=== PATIENT | male | born 1980 | race Two or more races ===

== ENCOUNTER → 2017-01-04 | Outpatient (CLI) | payer OTHER ==
[2017-01-04 13:43] LABS: BASO % 0 % (0-3); EOS # 0.1 x10^3/uL (0.0-0.7); EOS % 0 % (0-3); HEMATOCRIT 41.6 % (39.0-53.0); HEMOGLOBIN 14.4 g/dL (13.0-17.5); LYMPH # 1.9 x10^3/uL (1.0-4.8); LYMPH % 15 % (24-48); MEAN CORPUSCULAR HEMOGLOBIN 31 pg (25-35); MEAN CORPUSCULAR HGB CONC 35 g/dL (31-37); MEAN CORPUSCULAR VOLUME 89 fL (79-100); MONO # 0.7 x10^3/uL (0.0-1.1); MONO % 6 % (0-9); NEUT # 9.5 x10^3uL (1.8-7.7); NEUT % 78 % (31-73); PLATELET COUNT 285 x10^3/uL (140-400); RED BLOOD COUNT 4.69 x10^6/uL (4.30-5.70); RED CELL DISTRIBUTION WIDTH 12.7 % (11.5-14.5); WHITE BLOOD COUNT 12.2 x10^3/uL (4.0-11.0)
[2017-01-04 13:54] LABS: CREATININE 0.9 mg/dL (0.7-1.3); GFR 95.5; POTASSIUM 4.9 mmol/L (3.5-5.1); TOTAL BILIRUBIN 0.4 mg/dL (0.2-1.0); TOTAL PROTEIN 7.9 g/dL (6.4-8.2)
== END | disposition home or self-care (01) ==
LOC: SPEC 13:13
PROVIDERS: ATTEND Family Medicine Adult Medicine
DX: R41.82 Altered mental status, unspecified (principal)
CPT/HCPCS: 36415; 80053; 85025

== ENCOUNTER 2017-10-17 21:46 | Inpatient (IN) | payer OTHER ==
[~2017-10-17] VITALS: Ht 172.7 cm; Wt 85.3 kg
--- NOTE | 2017-10-17 22:13 | ED.ADGEN ---
Past History Past Medical History: Depression, Diabetes, Other Adult General Chief Complaint Chief Complaint ".. I took all my Metformin--30,000mg.. I was trying to kill myself... " HPI HPI Patient is a 37 year old male [facility] who presents with above hx. of overdosage of Metformin. Pt. Glucose was 400 + per paramedics . ( See hand written report- computer down) Tthe patient reports past history of depression. Review of Systems Review of Systems Pt. poor historian Constitutional: Denies fever or chills [] Eyes: Denies change in visual acuity, redness, or eye pain [] HENT: Denies nasal congestion or sore throat [] Respiratory: Denies cough or shortness of breath [] Cardiovascular: No additional information not addressed in HPI [] GI: Denies abdominal pain, nausea, vomiting, bloody stools or diarrhea [] : Denies dysuria or hematuria [] Musculoskeletal: Denies back pain or joint pain [] Integument: Denies rash or skin lesions [] Neurologic: Denies headache, focal weakness or sensory changes [] Endocrine: Denies polyuria or polydipsia [] All other systems were reviewed and found to be within normal limits, except as documented in this note. Family History Family History Patient declined family history Current Medications Current Medications See nursing for residential medications Allergies Allergies Allergies Coded Allergies Type Severity Reaction Last Updated Verified ibuprofen Allergy Unknown 10/17/17 Yes Physical Exam Physical Exam Constitutional: Well developed, well nourished, no acute distress, non-toxic appearance. [] HENT: Normocephalic, atraumatic, bilateral external ears normal, oropharynx moist, no oral exudates, nose normal. [] Eyes: PERRLA, EOMI, conjunctiva normal, no discharge. [] Neck: Normal range of motion, no tenderness, supple, no stridor. [] Cardiovascular:Heart rate regular rhythm, no murmur [] Lungs & Thorax: Bilateral breath sounds clear to auscultation [] Abdomen: Bowel sounds normal, soft, no tenderness, no masses, no pulsatile masses. [] Skin: Warm, dry, no erythema, no rash. [] Back: No tenderness, no CVA tenderness. [] Extremities: No tenderness, no cyanosis, no clubbing, ROM intact, no edema. [] Neurologic: Alert and oriented X 3, normal motor function, normal sensory function, no focal deficits noted. [] Psychologic: Affect anxious, judgement normal, mood depressed Current Patient Data Lab Results Laboratory Tests Test 10/17/17 21:56 10/17/17 22:35 White Blood Count 10.1 x10^3/uL (4.0-11.0) Red Blood Count 4.86 x10^6/uL (4.30-5.70) Hemoglobin 15.2 g/dL (13.0-17.5) Hematocrit 44.4 % (39.0-53.0) Mean Corpuscular Volume 91 fL (79-100) Mean Corpuscular Hemoglobin 31 pg (25-35) Mean Corpuscular Hemoglobin Concent 34 g/dL (31-37) Red Cell Distribution Width 12.2 % (11.5-14.5) Platelet Count 300 x10^3/uL (140-400) Neutrophils (%) (Auto) 56 % (31-73) Lymphocytes (%) (Auto) 34 % (24-48) Monocytes (%) (Auto) 7 % (0-9) Eosinophils (%) (Auto) 2 % (0-3) Basophils (%) (Auto) 1 % (0-3) Neutrophils # (Auto) 5.7 x10^3uL (1.8-7.7) Lymphocytes # (Auto) 3.4 x10^3/uL (1.0-4.8) Monocytes # (Auto) 0.7 x10^3/uL (0.0-1.1) Eosinophils # (Auto) 0.2 x10^3/uL (0.0-0.7) Basophils # (Auto) 0.1 x10^3/uL (0.0-0.2) Sodium Level 133 mmol/L (136-145) L Potassium Level 4.2 mmol/L (3.5-5.1) Chloride Level 96 mmol/L (98-107) L Carbon Dioxide Level 26 mmol/L (21-32) Anion Gap 11 (6-14) Blood Urea Nitrogen 11 mg/dL (8-26) Creatinine 1.1 mg/dL (0.7-1.3) Estimated GFR (Cockcroft-Gault) 75.3 Glucose Level 492 mg/dL (70-99) H Calcium Level 10.2 mg/dL (8.5-10.1) H Blood pH 7.38 (7.35-7.46) Blood Gas PCO2 45 mmHg (35-46) Blood Gas PO2 79 mmHg (80-100) L Blood Gas HCO3 27 mmol/L (21-28) Arterial Bld O2 Saturation (Calc) 95 % (92-99) FiO2 21 % EKG EKG My interpretation EKG shows a sinus rhythm at 78 bpm. No acute morphology appreciated. Does have some J-point elevation in leads 2 and 3.[] Radiology/Procedures Radiology/Procedures My interpretation of chest x-ray shows no acute cardiopulmonary findings.[] Course & Med Decision Making Course & Med Decision Making Pertinent Labs and Imaging studies reviewed. (See chart for details) Discussed presentation, testing and tx plan with Dr. Rodriguez. Admit - with serial glucose and lactic acid checks. [] Final Impression Final Impression 1. Hx. of Overdosage of Metformin- (30,000 mg) 2. DM - initial glucose 3. Depression 4. Suicidal Ideation[] Dragon Disclaimer Dragon Disclaimer This electronic medical record was generated, in whole or in part, using a voice recognition dictation system. AGUSTIN CHI MD Oct 17, 2017 22:13
[2017-10-17 22:51] LABS: BGAS PH 7.38 (7.35-7.46)
[2017-10-17 22:53] LABS: BASO # 0.1 x10^3/uL (0.0-0.2); BASO % 1 % (0-3); EOS # 0.2 x10^3/uL (0.0-0.7); EOS % 2 % (0-3); HEMATOCRIT 44.4 % (39.0-53.0); HEMOGLOBIN 15.2 g/dL (13.0-17.5); LYMPH # 3.4 x10^3/uL (1.0-4.8); LYMPH % 34 % (24-48); MEAN CORPUSCULAR HEMOGLOBIN 31 pg (25-35); MEAN CORPUSCULAR HGB CONC 34 g/dL (31-37); MEAN CORPUSCULAR VOLUME 91 fL (79-100); MONO # 0.7 x10^3/uL (0.0-1.1); MONO % 7 % (0-9); NEUT # 5.7 x10^3uL (1.8-7.7); NEUT % 56 % (31-73); PLATELET COUNT 300 x10^3/uL (140-400); RED BLOOD COUNT 4.86 x10^6/uL (4.30-5.70); RED CELL DISTRIBUTION WIDTH 12.2 % (11.5-14.5); WHITE BLOOD COUNT 10.1 x10^3/uL (4.0-11.0)
[2017-10-17 23:00] LABS: CALCIUM 10.2 mg/dL (8.5-10.1); CREATININE 1.1 mg/dL (0.7-1.3); GFR 75.3; POTASSIUM 4.2 mmol/L (3.5-5.1)
[2017-10-17] MEDS ORDERED: MAGNESIUM HYDROXIDE 2,400 MG/30 ML ORAL.SUSP. PO ONE (23:00)
[2017-10-17] MEDS ORDERED: IV NORMAL SALINE 1,000ML 1,000 ML IV ONE (23:00)
[2017-10-17] MEDS: IV RINGERS SOLUTION,LACTATED 1,000 ML IV SCH (23:46)
[2017-10-18] VITALS (18 sets, daily range): BP systolic 109–180; BP diastolic 73–103
[2017-10-18] MEDS ORDERED: NORMAL SALINE IV SCH (00:45)
[2017-10-18] MEDS ORDERED: IV NORMAL SALINE 1,000ML 1,000 ML IV ONE (01:15)
--- NOTE | 2017-10-18 02:07 | RAD ---
AP chest x-ray HISTORY: Drug overdose. FINDINGS: Heart size normal. Mediastinal silhouette is normal. No pneumothorax, pulmonary opacities or pleural effusions. Bones are unremarkable. IMPRESSION: No acute process. Electronically signed by: Evaristo Patel MD (10/18/2017 2:04 AM) [id number]
[2017-10-18] MEDS: IV RINGERS SOLUTION,LACTATED 1,000 ML IV SCH ×4 (02:25→19:30)
[2017-10-18 03:44] LABS: CALCIUM 8.8 mg/dL (8.5-10.1); CREATININE 1.2 mg/dL (0.7-1.3); GFR 68.1; POTASSIUM 4.4 mmol/L (3.5-5.1)
--- NOTE | 2017-10-18 03:57 | EKG ---
[address] [address] Test Date: 2017-10-17 Test Time: 22:31:15 Pat Name: ANA M TRISTAN Department: Room: ICU01 1 Gender: M [employer] Faculty Liaison: JANAE : 1980 Requested By: AGUSTIN CHI Order Number: [id number] Reading MD: Rishi Richards MD Measurements Intervals Ada Rate: 78 P: 43 MS: 184 QRS: 65 QRSD: 80 T: 34 QT: 344 QTc: 395 Interpretive Statements SINUS RHYTHM Electronically Signed On 10-22-2017 11:10:20 CDT by Rishi Richards MD
[2017-10-18 06:51] LABS: BASO # 0.1 x10^3/uL (0.0-0.2); BASO % 1 % (0-3); EOS # 0.2 x10^3/uL (0.0-0.7); EOS % 2 % (0-3); HEMATOCRIT 39.9 % (39.0-53.0); HEMOGLOBIN 13.8 g/dL (13.0-17.5); LYMPH # 3.3 x10^3/uL (1.0-4.8); LYMPH % 29 % (24-48); MEAN CORPUSCULAR HEMOGLOBIN 32 pg (25-35); MEAN CORPUSCULAR HGB CONC 35 g/dL (31-37); MEAN CORPUSCULAR VOLUME 92 fL (79-100); MONO # 0.9 x10^3/uL (0.0-1.1); MONO % 8 % (0-9); NEUT # 6.9 x10^3uL (1.8-7.7); NEUT % 61 % (31-73); PLATELET COUNT 250 x10^3/uL (140-400); RED BLOOD COUNT 4.33 x10^6/uL (4.30-5.70); RED CELL DISTRIBUTION WIDTH 12.6 % (11.5-14.5); WHITE BLOOD COUNT 11.3 x10^3/uL (4.0-11.0)
[2017-10-18 07:04] LABS: CALCIUM 8.7 mg/dL (8.5-10.1); CREATININE 1.1 mg/dL (0.7-1.3); GFR 75.3; POTASSIUM 3.9 mmol/L (3.5-5.1)
[2017-10-18] MEDS ORDERED: DEXTROSE 50% 25 GM / 50ML DISP.SYRIN. IV PRN (11:15)
--- NOTE | 2017-10-18 12:01 | HP ---
ADMIT DATE: 10/18/2017 HISTORY OF PRESENT ILLNESS: The patient is a 37-year-old -Turkish male patient, an inmate at [facility], who came to the Emergency Room stating that he took all his metformin 30,000 mg and was trying to kill himself. His blood sugar there was about . He apparently has past medical history of depression, although when I asked him myself, he denied any intent to kill himself. Denied any nausea, vomiting, abdominal pain with diarrhea. He was extensively investigated in the Emergency Room. His lab work showed that he has lactic acidosis with lactic acid of 4.1, came down to 3.4. His blood gases were normal as well as his blood count. He was admitted for further evaluation and treatment with suicidal ideation, drug overdose taking 30,000 mg metformin. Apparently, he is known to have type 2 diabetes and he used to be on insulin for that and has a history of depression. PAST MEDICAL HISTORY: Significant for type 2 diabetes diagnosed in 2004. He had also known to have hyperlipidemia. PAST SURGICAL HISTORY: Unremarkable. ALLERGIES: He is allergic to MOTRIN. MEDICATIONS: He is currently on metformin 500 mg twice a day. FAMILY HISTORY: He has 3 brothers and 1 sister. One of his brother is older. The rest are younger and all healthy. His father at age 76. Mother at the age of 56; however, he does not know their cause of or any medical problems. SOCIAL HISTORY: He is single, not , does not smoke, drink alcohol or use any recreational drugs. REVIEW OF SYSTEMS: As per history of present illness. PHYSICAL EXAMINATION: GENERAL: On examining him; he looked well and was clearly in no apparent respiratory distress, slightly pale, but no jaundice, cyanosis, or thyromegaly. No jugular venous distension. No lower limb edema. VITAL SIGNS: His heart rate was 88, blood pressure 144/87, temperature was 97.8, respiratory rate 26, and oxygen saturation was 100% on room air. HEAD, EYES, EARS, NOSE AND THROAT: Showed normocephalic, atraumatic. NECK: Supple. HEART: Showed normal first and second sounds. No gallop, rub or murmur. CHEST: Clear to auscultation. No crepitation or rhonchi. ABDOMEN: Distended, soft, nontender. NEUROLOGIC: He was awake, alert, responding appropriately. All cranial nerves intact. EXTREMITIES: He moves extremities without difficulty. He ambulates without assistance or assistive devices. LABORATORY DATA: On admission showed a white cell count of 10,000, hemoglobin 15, hematocrit 44, MCV 91, and platelet count 300,000. His arterial blood gases showed a pH of 7.38, pCO2 of 45, pO2 of 79, bicarbonate 27, oxygen saturation was 95% on room air. His chemistry showed serum sodium of 133, potassium 4.2, chloride 96, bicarbonate 26, anion gap of 11, BUN 11, creatinine 1.1, estimated GFR was 75 mL per minute. His glucose was 492, lactic acid was 4.1 and calcium was 10.2. ASSESSMENT AND PLAN: In summary, this is a 37-year-old -Turkish male patient, a [facility] inmate, who was admitted with an overdose of metformin. He took 30,000 mg of metformin with the intent to harm himself. He is known to have type 2 diabetes since 2004 and he is known to have depression. The patient so far seems to be doing well. We will monitor his lab work, continued IV fluid. We will continue a low dose sliding scale to control his blood sugar and we will consult Dr. Elmore to evaluate him and he felt that safe for him to go back, we can discharge him. TOMASZ SAMANO MD DR: LADI/griffin JOB#: [id number] / [id number]
[2017-10-18] MEDS: INSULIN LISPRO 300 UNITS/3 ML INSULN.PEN. SQ SCH ×3 (12:06→22:02)
[2017-10-18 12:30] LABS: ALBUMIN 3.1 g/dL (3.4-5.0); MAGNESIUM 1.9 mg/dL (1.8-2.4); TOTAL BILIRUBIN 0.6 mg/dL (0.2-1.0); TOTAL PROTEIN 6.7 g/dL (6.4-8.2)
[2017-10-18 12:57] LABS: DIRECT BILIRUBIN 0.1 mg/dL (0.0-0.2)
[2017-10-18] MEDS: LOSARTAN 25 MG TABLET. PO SCH (17:50)
[2017-10-18] MEDS: LISINOPRIL 5 MG TABLET. PO SCH (17:50)
[2017-10-18] MEDS ORDERED: ATORVASTATIN CALCIUM 10 MG TABLET. PO SCH (21:00)
--- NOTE | 2017-10-18 22:52 | PDOC ---
Exam Note: Brock Note: Please also refer to the separate dictated note~for this date of service dictated separately.~Patient seen individually. Discussed the patient with Nursing staff reviewed the chart.~Reviewed interim history and current functioning. Reviewed vital signs,~Labs/ Radiology~and current medications noted below. Continue current treatment with the changes noted in the dictated addendum note Assessment: Vital Signs: Vital Signs Date Time Temp Pulse Resp B/P (MAP) Pulse Ox O2 Delivery O2 Flow Rate FiO2 10/18/17 18:00 98.6 69 20 148/87 (107) 97 Room Air I&O Intake and Output 10/18/17 07:00 Intake Total 2570 ml Balance 2570 ml Intake Oral 0 ml IV Total 2570 ml Labs: Laboratory Tests Test 10/17/17 22:55 10/18/17 00:20 10/18/17 01:25 10/18/17 02:49 Lactic Acid Level 4.1 mmol/L (0.4-2.0) *H Glucose (Fingerstick) 318 mg/dL (70-99) H 238 mg/dL (70-99) H 210 mg/dL (70-99) H Test 10/18/17 03:05 10/18/17 05:03 10/18/17 05:44 10/18/17 08:13 Sodium Level 142 mmol/L (136-145) # 141 mmol/L (136-145) Potassium Level 4.4 mmol/L (3.5-5.1) 3.9 mmol/L (3.5-5.1) Chloride Level 107 mmol/L (98-107) 106 mmol/L (98-107) Carbon Dioxide Level 29 mmol/L (21-32) 25 mmol/L (21-32) Anion Gap 6 (6-14) 10 (6-14) Blood Urea Nitrogen 11 mg/dL (8-26) 11 mg/dL (8-26) Creatinine 1.2 mg/dL (0.7-1.3) 1.1 mg/dL (0.7-1.3) Estimated GFR (Cockcroft-Gault) 68.1 75.3 Glucose Level 219 mg/dL (70-99) H 223 mg/dL (70-99) H Lactic Acid Level 3.4 mmol/L (0.4-2.0) H Calcium Level 8.8 mg/dL (8.5-10.1) # 8.7 mg/dL (8.5-10.1) Glucose (Fingerstick) 211 mg/dL (70-99) H 207 mg/dL (70-99) H White Blood Count 11.3 x10^3/uL (4.0-11.0) H Red Blood Count 4.33 x10^6/uL (4.30-5.70) Hemoglobin 13.8 g/dL (13.0-17.5) Hematocrit 39.9 % (39.0-53.0) Mean Corpuscular Volume 92 fL (79-100) Mean Corpuscular Hemoglobin 32 pg (25-35) Mean Corpuscular Hemoglobin Concent 35 g/dL (31-37) Red Cell Distribution Width 12.6 % (11.5-14.5) Platelet Count 250 x10^3/uL (140-400) Neutrophils (%) (Auto) 61 % (31-73) Lymphocytes (%) (Auto) 29 % (24-48) Monocytes (%) (Auto) 8 % (0-9) Eosinophils (%) (Auto) 2 % (0-3) Basophils (%) (Auto) 1 % (0-3) Neutrophils # (Auto) 6.9 x10^3uL (1.8-7.7) Lymphocytes # (Auto) 3.3 x10^3/uL (1.0-4.8) Monocytes # (Auto) 0.9 x10^3/uL (0.0-1.1) Eosinophils # (Auto) 0.2 x10^3/uL (0.0-0.7) Basophils # (Auto) 0.1 x10^3/uL (0.0-0.2) Magnesium Level 1.9 mg/dL (1.8-2.4) Total Bilirubin 0.6 mg/dL (0.2-1.0) Direct Bilirubin 0.1 mg/dL (0.0-0.2) Aspartate Amino Transferase (AST) 12 U/L (15-37) L Alanine Aminotransferase (ALT) 14 U/L (16-63) L Alkaline Phosphatase 69 U/L (46-116) Total Protein 6.7 g/dL (6.4-8.2) Albumin 3.1 g/dL (3.4-5.0) L Test 10/18/17 11:52 10/18/17 17:01 10/18/17 20:18 Glucose (Fingerstick) 222 mg/dL (70-99) H 218 mg/dL (70-99) H 278 mg/dL (70-99) H Current Medications: Meds: Current Medications Magnesium Hydroxide (Milk Of Magnesia) 2,400 mg 1X ONCE PO Last administered on 10/17/17at 23:45; Start 10/17/17 at 23:00; Stop 10/17/17 at 23:01; Status DC Sodium Chloride 1,000 ml @ 1,000 mls/hr 1X ONCE IV Last administered on at 23:45; Start 10/17/17 at 23:00; Stop 10/17/17 at 23:59; Status DC Lactated Ringer's 1,000 ml @ 200 mls/hr Q5H IV Last administered on 10/18/17at 07:59; Start 10/17/17 at 23:30 Sodium Chloride 2,550 ml @ 2,550 mls/hr Q1H IV ; Start 10/18/17 at 00:45; Stop 10/18/17 at 01:00; Status DC Sodium Chloride 1,000 ml @ 2,550 mls/hr 1X ONCE IV Last administered on at 00:55; Start 10/18/17 at 01:15; Stop 10/18/17 at 01:38; Status DC Insulin Human Lispro (HumaLOG) 0-5 UNITS TIDWMEALS SQ Last administered on 10/18at 22:02; Start 10/18/17 at 12:00 Dextrose 12.5 gm PRN Q15MIN PRN IV SEE COMMENTS; Start 10/18/17 at 11:15 Lisinopril (Prinivil) 5 mg DAILY PO Last administered on 10/18/17at 17:50; Start 10/18/17 at 17:45 Atorvastatin Calcium (Lipitor) 10 mg QHS PO ; Start 10/18/17 at 21:00 Losartan Potassium (Cozaar) 25 mg DAILY PO Last administered on 10/18/17at 17:50 ; Start 10/18/17 at 17:45 I have reviewed the current psychotropics carefully including drug interactions. Risk benefit ratio favors no change other than as noted in my dictated progress note. Diagnosis: Problems: (1) Anxiety disorder (2) Bipolar affective disorder, mixed (3) Schizoaffective disorder, bipolar type (4) Schizophrenia, paranoid, chronic with acute exacerbation BERNADETTE HOOVER MD Oct 18, 2017 22:52
--- NOTE | 2017-10-18 23:01 | PDOC ---
Exam Note: Brock Note: Please also refer to the separate dictated note~for this date of service dictated separately.~Patient seen individually. Discussed the patient with Nursing staff reviewed the chart.~Reviewed interim history and current functioning. Reviewed vital signs,~Labs/ Radiology~and current medications noted below. Continue current treatment with the changes noted in the dictated addendum note Assessment: Vital Signs: Vital Signs Date Time Temp Pulse Resp B/P (MAP) Pulse Ox O2 Delivery O2 Flow Rate FiO2 10/18/17 18:00 98.6 69 20 148/87 (107) 97 Room Air I&O Intake and Output 10/18/17 07:00 Intake Total 2570 ml Balance 2570 ml Intake Oral 0 ml IV Total 2570 ml Labs: Laboratory Tests Test 10/18/17 00:20 10/18/17 01:25 10/18/17 02:49 10/18/17 03:05 Glucose (Fingerstick) 318 mg/dL (70-99) H 238 mg/dL (70-99) H 210 mg/dL (70-99) H Sodium Level 142 mmol/L (136-145) # Potassium Level 4.4 mmol/L (3.5-5.1) Chloride Level 107 mmol/L (98-107) Carbon Dioxide Level 29 mmol/L (21-32) Anion Gap 6 (6-14) Blood Urea Nitrogen 11 mg/dL (8-26) Creatinine 1.2 mg/dL (0.7-1.3) Estimated GFR (Cockcroft-Gault) 68.1 Glucose Level 219 mg/dL (70-99) H Lactic Acid Level 3.4 mmol/L (0.4-2.0) H Calcium Level 8.8 mg/dL (8.5-10.1) # Test 10/18/17 05:03 10/18/17 05:44 10/18/17 08:13 10/18/17 11:52 Glucose (Fingerstick) 211 mg/dL (70-99) H 207 mg/dL (70-99) H 222 mg/dL (70-99) H White Blood Count 11.3 x10^3/uL (4.0-11.0) H Red Blood Count 4.33 x10^6/uL (4.30-5.70) Hemoglobin 13.8 g/dL (13.0-17.5) Hematocrit 39.9 % (39.0-53.0) Mean Corpuscular Volume 92 fL (79-100) Mean Corpuscular Hemoglobin 32 pg (25-35) Mean Corpuscular Hemoglobin Concent 35 g/dL (31-37) Red Cell Distribution Width 12.6 % (11.5-14.5) Platelet Count 250 x10^3/uL (140-400) Neutrophils (%) (Auto) 61 % (31-73) Lymphocytes (%) (Auto) 29 % (24-48) Monocytes (%) (Auto) 8 % (0-9) Eosinophils (%) (Auto) 2 % (0-3) Basophils (%) (Auto) 1 % (0-3) Neutrophils # (Auto) 6.9 x10^3uL (1.8-7.7) Lymphocytes # (Auto) 3.3 x10^3/uL (1.0-4.8) Monocytes # (Auto) 0.9 x10^3/uL (0.0-1.1) Eosinophils # (Auto) 0.2 x10^3/uL (0.0-0.7) Basophils # (Auto) 0.1 x10^3/uL (0.0-0.2) Sodium Level 141 mmol/L (136-145) Potassium Level 3.9 mmol/L (3.5-5.1) Chloride Level 106 mmol/L (98-107) Carbon Dioxide Level 25 mmol/L (21-32) Anion Gap 10 (6-14) Blood Urea Nitrogen 11 mg/dL (8-26) Creatinine 1.1 mg/dL (0.7-1.3) Estimated GFR (Cockcroft-Gault) 75.3 Glucose Level 223 mg/dL (70-99) H Calcium Level 8.7 mg/dL (8.5-10.1) Magnesium Level 1.9 mg/dL (1.8-2.4) Total Bilirubin 0.6 mg/dL (0.2-1.0) Direct Bilirubin 0.1 mg/dL (0.0-0.2) Aspartate Amino Transferase (AST) 12 U/L (15-37) L Alanine Aminotransferase (ALT) 14 U/L (16-63) L Alkaline Phosphatase 69 U/L (46-116) Total Protein 6.7 g/dL (6.4-8.2) Albumin 3.1 g/dL (3.4-5.0) L Test 10/18/17 17:01 10/18/17 20:18 Glucose (Fingerstick) 218 mg/dL (70-99) H 278 mg/dL (70-99) H Current Medications: Meds: Current Medications Magnesium Hydroxide (Milk Of Magnesia) 2,400 mg 1X ONCE PO Last administered on 10/17/17at 23:45; Start 10/17/17 at 23:00; Stop 10/17/17 at 23:01; Status DC Sodium Chloride 1,000 ml @ 1,000 mls/hr 1X ONCE IV Last administered on at 23:45; Start 10/17/17 at 23:00; Stop 10/17/17 at 23:59; Status DC Lactated Ringer's 1,000 ml @ 200 mls/hr Q5H IV Last administered on 10/18/17at 07:59; Start 10/17/17 at 23:30 Sodium Chloride 2,550 ml @ 2,550 mls/hr Q1H IV ; Start 10/18/17 at 00:45; Stop 10/18/17 at 01:00; Status DC Sodium Chloride 1,000 ml @ 2,550 mls/hr 1X ONCE IV Last administered on at 00:55; Start 10/18/17 at 01:15; Stop 10/18/17 at 01:38; Status DC Insulin Human Lispro (HumaLOG) 0-5 UNITS TIDWMEALS SQ Last administered on 10/18at 22:02; Start 10/18/17 at 12:00 Dextrose 12.5 gm PRN Q15MIN PRN IV SEE COMMENTS; Start 10/18/17 at 11:15 Lisinopril (Prinivil) 5 mg DAILY PO Last administered on 10/18/17at 17:50; Start 10/18/17 at 17:45 Atorvastatin Calcium (Lipitor) 10 mg QHS PO ; Start 10/18/17 at 21:00 Losartan Potassium (Cozaar) 25 mg DAILY PO Last administered on 10/18/17at 17:50 ; Start 10/18/17 at 17:45 Sertraline HCl (Zoloft) 25 mg DAILY PO ; Start 10/19/17 at 09:00; Status UNV I have reviewed the current psychotropics carefully including drug interactions. Risk benefit ratio favors no change other than as noted in my dictated progress note. Diagnosis: Problems: (1) Overdose (2) Schizoaffective disorder, bipolar type (3) Anxiety disorder (4) Bipolar affective disorder, mixed (5) Schizophrenia, paranoid, chronic with acute exacerbation BERNADETTE HOOVER MD Oct 18, 2017 23:01
--- NOTE | 2017-10-19 00:05 | PN ---
DATE: 10/18/2017 SUBJECTIVE: The patient is a [facility] inmate who came after he took 30,000 mg of metformin as a suicidal attempt. His blood sugar was extremely high when he arrived, it was 492 mg/dL. He has lactic acidosis, which is probably type B. However, he denied any complaint. In particular, he denied any nausea, vomiting, abdominal pain or diarrhea. OBJECTIVE: GENERAL: On examining him, he looked well and was clearly in no apparent respiratory distress. No pallor, jaundice, cyanosis or thyromegaly. No jugular venous distention. No lower limb edema. VITAL SIGNS: His heart rate was 72, blood pressure was 135/89, temperature was 98.1, respiratory rate 20, and oxygen saturation was 96%. The rest of clinical examination is unremarkable. INTAKE AND OUTPUT: His intake over the last 24 hours was 2570, no output was recorded. LABORATORY DATA: As of this morning, his serum sodium was 141, potassium 3.9, chloride 106, bicarbonate 25, anion gap of 10, BUN 11, creatinine 1.1, estimated GFR was 75 mL per minute. His glucose was 223 and calcium was 8.7. His white cell count was 11,300, hemoglobin 14, hematocrit 40, MCV 92, and platelet count 250,000. ASSESSMENT: Metformin overdose with no untoward side effect, suicidal ideation, type 2 diabetes, hypertension. PLAN: We will advance his diet, start him on low dose sliding scale before meals. I would consult Dr. Elmore for evaluation. TOMASZ SAMANO MD DR: LADI/griffin JOB#: [id number] / [id number]
[2017-10-19] MEDS: IV RINGERS SOLUTION,LACTATED 1,000 ML IV SCH ×3 (00:30→10:30)
--- NOTE | 2017-10-19 01:37 | CONS ---
DATE OF CONSULTATION: 10/18/2017 IDENTIFYING DATA: The patient is a 37-year-old Afro-[place] male seen in ICU bed 1, [facility], for a psychiatric consult requested by Dr. Rodriguez after the patient was admitted from the [facility] ([place], [place]) where he is an inmate following an overdose and metformin after he took a whole bottle intentionally. The patient states he did not take the excess medications to end his life, but rather to reduce his blood sugars. He has had privileges to keep his medications on himself and as noted at the end of my dictation I am recommending that he be dispensed daily psychotropics by the nursing staff. HISTORY OF PRESENT ILLNESS: The patient has a long history of schizoaffective disorder, bipolar type. Reportedly, he had been treated inpatient for about 5 years at the [facility]. Currently, he has been at the [facility] ([place], [place]), being treated by Dr. Mazariegos, psychiatrist. He states he took all his metformin 30,000 mg and initially he said he was trying to kill himself and another occasion, he said he was just trying to get his blood sugars down. He was extensively investigated in the ER, had lactic acidosis, lactic acid 4.1, dropped down to 3.4, admitted for further evaluation. He is known to have type 2 diabetes mellitus. PAST PSYCHIATRIC HISTORY: As above. MEDICAL HISTORY: Diabetes mellitus diagnosed in 2004, also history of hyperlipidemia. PAST SURGICAL HISTORY: Unremarkable. ALLERGIES: MOTRIN. CURRENT PSYCHOTROPICS: Negative. CODE STATUS: Full code. FAMILY HISTORY: Noncontributory. SOCIAL HISTORY: No alcohol or drug abuse history. He is single, states his siblings and biological family live in [place] and he plans to move to [place] after he is released from alf. MENTAL STATUS EXAMINATION: The patient was seen individually evening of 10/18/2017. He is oriented to himself and situation. Speech has some latency, coherent. Eye contact somewhat poor. Attention span short. Mood is somewhat dysphoric. He denied active suicidal ideation. Attention span short. Language function intact. IMPRESSION: History of schizoaffective disorder, bipolar type, major depressive disorder; anxiety disorder, unspecified. PLAN: Would recommend starting the patient on Zoloft 25 mg a day and this may need to be increased while he is back at the alf and he should see Dr. Mazariegos, psychiatrist to follow up there. If psychotic symptoms are evident, consideration should be given to adding Risperdal or if mood swings are evident perhaps Latuda may be an option for additional depressive symptoms. He should not be permitted to keep any of his medications for self-administration, nursing staff should administer at appropriate timings. Dr. Rodriguez, thank you for the opportunity to participate in your patient's care. We will follow with you. BERNADETTE HOOVER MD DR: JORDAN/griffin JOB#: [id number] / [id number]
[2017-10-19 05:36] LABS: HEMATOCRIT 39.3 % (39.0-53.0); HEMOGLOBIN 13.6 g/dL (13.0-17.5); RED BLOOD COUNT 4.31 x10^6/uL (4.30-5.70); RED CELL DISTRIBUTION WIDTH 12.5 % (11.5-14.5); WHITE BLOOD COUNT 9.8 x10^3/uL (4.0-11.0)
[2017-10-19 05:48] LABS: ALBUMIN 2.9 g/dL (3.4-5.0); ALBUMIN/GLOBULIN RATIO 0.8 (1.0-1.7); CREATININE 0.7 mg/dL (0.7-1.3); GFR 126.9; POTASSIUM 3.4 mmol/L (3.5-5.1); TOTAL BILIRUBIN 0.8 mg/dL (0.2-1.0); TOTAL PROTEIN 6.4 g/dL (6.4-8.2)
[2017-10-19 06:00] VITALS: BP 91/46
[2017-10-19] MEDS: LISINOPRIL 5 MG TABLET. PO SCH (08:45)
[2017-10-19] MEDS: LOSARTAN 25 MG TABLET. PO SCH (08:45)
[2017-10-19] MEDS: INSULIN LISPRO 300 UNITS/3 ML INSULN.PEN. SQ SCH ×2 (08:46→12:25)
[2017-10-19] MEDS ORDERED: SERTRALINE 25 MG TABLET. PO SCH (09:00)
[2017-10-19 11:06] VITALS: BP 96/61
[2017-10-19] MEDS ORDERED: SERT25TA4 PO (14:26)
[2017-10-19] MEDS ORDERED: LOSA25TA PO (14:26)
[2017-10-19] MEDS ORDERED: ATOR10TA60 PO (14:26)
[2017-10-19] MEDS ORDERED: METF500T5 PO (14:26)
[2017-10-19] MEDS ORDERED: LISI-338 PO (14:26)
--- NOTE | 2017-10-19 20:19 | PDOC3 ---
Discharge Summary Visit Information Date of Admission: Oct 17, 2017 Date of Discharge: Oct 19, 2017 Admitting Diagnosis: Reported metformin OD, suicidal ideation, lactic acidosi Admitting Diagnosis Comments 37 y/o incarcerated male from [facility] brought to ED for reported metformin OD (30, 000mg reported). Was found to be hyperglycemic (492) in ED with lactic acid >4 , WBC 12.2 otherwise labs/ABG unremarkable. No urine studies were apparently obtained, he was admitted for observation and psychiatric evaluation to the ICU. Final Diagnosis Problems Medical Problems: (1) Overdose Status: Acute Problems: (1) Hyperlipidemia associated with type 2 diabetes mellitus (2) Diabetes Brief Hospital Course Allergies Allergies Coded Allergies Type Severity Reaction Last Updated Verified ibuprofen Allergy Intermediate 10/18/17 Yes Vital Signs Vital Signs Date Time Temp Pulse Resp B/P (MAP) Pulse Ox O2 Delivery O2 Flow Rate FiO2 10/19/17 11:06 97.5 60 18 96/61 (73) 92 Room Air Lab Results Laboratory Tests Test 10/17/17 21:52 10/17/17 21:56 10/17/17 22:35 10/17/17 22:55 Glucose (Fingerstick) 483 mg/dL (70-99) White Blood Count 10.1 x10^3/uL (4.0-11.0) Red Blood Count 4.86 x10^6/uL (4.30-5.70) Hemoglobin 15.2 g/dL (13.0-17.5) Hematocrit 44.4 % (39.0-53.0) Mean Corpuscular Volume 91 fL (79-100) Mean Corpuscular Hemoglobin 31 pg (25-35) Mean Corpuscular Hemoglobin Concent 34 g/dL (31-37) Red Cell Distribution Width 12.2 % (11.5-14.5) Platelet Count 300 x10^3/uL (140-400) Neutrophils (%) (Auto) 56 % (31-73) Lymphocytes (%) (Auto) 34 % (24-48) Monocytes (%) (Auto) 7 % (0-9) Eosinophils (%) (Auto) 2 % (0-3) Basophils (%) (Auto) 1 % (0-3) Neutrophils # (Auto) 5.7 x10^3uL (1.8-7.7) Lymphocytes # (Auto) 3.4 x10^3/uL (1.0-4.8) Monocytes # (Auto) 0.7 x10^3/uL (0.0-1.1) Eosinophils # (Auto) 0.2 x10^3/uL (0.0-0.7) Basophils # (Auto) 0.1 x10^3/uL (0.0-0.2) Sodium Level 133 mmol/L (136-145) Potassium Level 4.2 mmol/L (3.5-5.1) Chloride Level 96 mmol/L (98-107) Carbon Dioxide Level 26 mmol/L (21-32) Anion Gap 11 (6-14) Blood Urea Nitrogen 11 mg/dL (8-26) Creatinine 1.1 mg/dL (0.7-1.3) Estimated GFR (Cockcroft-Gault) 75.3 Glucose Level 492 mg/dL (70-99) Calcium Level 10.2 mg/dL (8.5-10.1) Blood Gas pH 7.38 (7.35-7.46) Blood Gas PCO2 45 mmHg (35-46) Blood Gas PO2 79 mmHg (80-100) Blood Gas HCO3 27 mmol/L (21-28) Arterial Bld O2 Saturation (Calc) 95 % (92-99) FiO2 21 % Lactic Acid Level 4.1 mmol/L (0.4-2.0) Test 10/18/17 00:20 10/18/17 01:25 10/18/17 02:00 10/18/17 02:49 Glucose (Fingerstick) 318 mg/dL (70-99) 238 mg/dL (70-99) 210 mg/dL (70-99) Nasal Screen MRSA (PCR) Negative (Negative) Test 10/18/17 03:05 10/18/17 05:03 10/18/17 05:44 10/18/17 08:13 Sodium Level 142 mmol/L (136-145) 141 mmol/L (136-145) Potassium Level 4.4 mmol/L (3.5-5.1) 3.9 mmol/L (3.5-5.1) Chloride Level 107 mmol/L (98-107) 106 mmol/L (98-107) Carbon Dioxide Level 29 mmol/L (21-32) 25 mmol/L (21-32) Anion Gap 6 (6-14) 10 (6-14) Blood Urea Nitrogen 11 mg/dL (8-26) 11 mg/dL (8-26) Creatinine 1.2 mg/dL (0.7-1.3) 1.1 mg/dL (0.7-1.3) Estimated GFR (Cockcroft-Gault) 68.1 75.3 Glucose Level 219 mg/dL (70-99) 223 mg/dL (70-99) Lactic Acid Level 3.4 mmol/L (0.4-2.0) Calcium Level 8.8 mg/dL (8.5-10.1) 8.7 mg/dL (8.5-10.1) Glucose (Fingerstick) 211 mg/dL (70-99) 207 mg/dL (70-99) White Blood Count 11.3 x10^3/uL (4.0-11.0) Red Blood Count 4.33 x10^6/uL (4.30-5.70) Hemoglobin 13.8 g/dL (13.0-17.5) Hematocrit 39.9 % (39.0-53.0) Mean Corpuscular Volume 92 fL (79-100) Mean Corpuscular Hemoglobin 32 pg (25-35) Mean Corpuscular Hemoglobin Concent 35 g/dL (31-37) Red Cell Distribution Width 12.6 % (11.5-14.5) Platelet Count 250 x10^3/uL (140-400) Neutrophils (%) (Auto) 61 % (31-73) Lymphocytes (%) (Auto) 29 % (24-48) Monocytes (%) (Auto) 8 % (0-9) Eosinophils (%) (Auto) 2 % (0-3) Basophils (%) (Auto) 1 % (0-3) Neutrophils # (Auto) 6.9 x10^3uL (1.8-7.7) Lymphocytes # (Auto) 3.3 x10^3/uL (1.0-4.8) Monocytes # (Auto) 0.9 x10^3/uL (0.0-1.1) Eosinophils # (Auto) 0.2 x10^3/uL (0.0-0.7) Basophils # (Auto) 0.1 x10^3/uL (0.0-0.2) Magnesium Level 1.9 mg/dL (1.8-2.4) Total Bilirubin 0.6 mg/dL (0.2-1.0) Direct Bilirubin 0.1 mg/dL (0.0-0.2) Aspartate Amino Transf (AST/SGOT) 12 U/L (15-37) Alanine Aminotransferase (ALT/SGPT) 14 U/L (16-63) Alkaline Phosphatase 69 U/L (46-116) Total Protein 6.7 g/dL (6.4-8.2) Albumin 3.1 g/dL (3.4-5.0) Test 10/18/17 11:52 10/18/17 17:01 10/18/17 20:18 10/19/17 05:10 Glucose (Fingerstick) 222 mg/dL (70-99) 218 mg/dL (70-99) 278 mg/dL (70-99) White Blood Count 9.8 x10^3/uL (4.0-11.0) Red Blood Count 4.31 x10^6/uL (4.30-5.70) Hemoglobin 13.6 g/dL (13.0-17.5) Hematocrit 39.3 % (39.0-53.0) Mean Corpuscular Volume 91 fL (79-100) Mean Corpuscular Hemoglobin 32 pg (25-35) Mean Corpuscular Hemoglobin Concent 35 g/dL (31-37) Red Cell Distribution Width 12.5 % (11.5-14.5) Platelet Count 237 x10^3/uL (140-400) Sodium Level 140 mmol/L (136-145) Potassium Level 3.4 mmol/L (3.5-5.1) Chloride Level 103 mmol/L (98-107) Carbon Dioxide Level 28 mmol/L (21-32) Anion Gap 9 (6-14) Blood Urea Nitrogen 9 mg/dL (8-26) Creatinine 0.7 mg/dL (0.7-1.3) Estimated GFR (Cockcroft-Gault) 126.9 BUN/Creatinine Ratio 13 (6-20) Glucose Level 151 mg/dL (70-99) Calcium Level 9.0 mg/dL (8.5-10.1) Total Bilirubin 0.8 mg/dL (0.2-1.0) Aspartate Amino Transf (AST/SGOT) 13 U/L (15-37) Alanine Aminotransferase (ALT/SGPT) 13 U/L (16-63) Alkaline Phosphatase 59 U/L (46-116) Total Protein 6.4 g/dL (6.4-8.2) Albumin 2.9 g/dL (3.4-5.0) Albumin/Globulin Ratio 0.8 (1.0-1.7) Test 10/19/17 07:30 10/19/17 11:26 Glucose (Fingerstick) 160 mg/dL (70-99) 269 mg/dL (70-99) Brief Hospital Course Mr. Morrison is a 37 year old F incarcerated male who presented in custody to the ED with report of intentional overdose as above. His labs quickly normalized and he has been comfortable with normal vitals. While an inpatient he underwent a psychiatric evaluation and recommendation of zoloft 25mg/day for schizoaffective disorder, bipolar disorder with depression and anxiety. In talking with poison control today the patient's objective data and clinical course are not consistent with the reported overdose. Recommended restart metformin with no further monitoring from this event. Patient continues to deny suicidal intent and denies any complaints. Discharge Information Condition at Discharge: Stable Follow Up: As Needed (Needs close glucose monitoring and evaluation by group home psychiatry within a week.) Disposition/Orders: Other (to [facility] in custody) Dischare Medications Current Medications Magnesium Hydroxide (Milk Of Magnesia) 2,400 mg 1X ONCE PO Last administered on 10/17/17at 23:45; Start 10/17/17 at 23:00; Stop 10/17/17 at 23:01; Status DC Sodium Chloride 1,000 ml @ 1,000 mls/hr 1X ONCE IV Last administered on at 23:45; Start 10/17/17 at 23:00; Stop 10/17/17 at 23:59; Status DC Lactated Ringer's 1,000 ml @ 200 mls/hr Q5H IV Last administered on 10/18/17at 07:59; Start 10/17/17 at 23:30; Stop 10/19/17 at 15:11; Status DC Sodium Chloride 2,550 ml @ 2,550 mls/hr Q1H IV ; Start 10/18/17 at 00:45; Stop 10/18/17 at 01:00; Status DC Sodium Chloride 1,000 ml @ 2,550 mls/hr 1X ONCE IV Last administered on at 00:55; Start 10/18/17 at 01:15; Stop 10/18/17 at 01:38; Status DC Insulin Human Lispro (HumaLOG) 0-5 UNITS TIDWMEALS SQ Last administered on 10/19at 12:25; Start 10/18/17 at 12:00; Stop 10/19/17 at 15:11; Status DC Dextrose 12.5 gm PRN Q15MIN PRN IV SEE COMMENTS; Start 10/18/17 at 11:15; Stop 10/19/17 at 15:11; Status DC Lisinopril (Prinivil) 5 mg DAILY PO Last administered on 10/18/17at 17:50; Start 10/18/17 at 17:45; Stop 10/19/17 at 15:11; Status DC Atorvastatin Calcium (Lipitor) 10 mg QHS PO Last administered on 10/18/17at 21: 00; Start 10/18/17 at 21:00; Stop 10/19/17 at 15:11; Status DC Losartan Potassium (Cozaar) 25 mg DAILY PO Last administered on 10/18/17at 17:50 ; Start 10/18/17 at 17:45; Stop 10/19/17 at 15:11; Status DC Sertraline HCl (Zoloft) 25 mg DAILY PO Last administered on 10/19/17at 08:45; Start 10/19/17 at 09:00; Stop 10/19/17 at 15:11; Status DC Active Scripts Active Metformin Hcl 500 Mg Tablet 1 Tab PO BID Sertraline Hcl 25 Mg Tablet 25 Mg PO DAILY 30 Days Cozaar (Losartan Potassium) 25 Mg Tablet 25 Mg PO DAILY 30 Days Lisinopril 5 Mg Tablet 5 Mg PO DAILY 30 Days Atorvastatin Calcium 10 Mg Tablet 10 Mg PO QHS 30 Days Patient Instructions Patient Instuctions Maintain consistent ADA diet. Take meds as prescribed. ABELARDO MORALES DO Oct 19, 2017 20:18
== END 2017-10-19 15:11 | DRG 918 ==
LOC: ER 21:46 → EEVIPCON 22:40 → ICU 22:40
PROVIDERS: ADMIT Internal Medicine; ATTEND Internal Medicine
DX: T38.3X2A Poisoning by insulin and oral hypoglycemic [antidiabetic] drugs, intentional self-harm, initial encounter (principal); F31.60 Bipolar disorder, current episode mixed, unspecified; E87.2 Acidosis; E11.9 Type 2 diabetes mellitus without complications; E78.5 Hyperlipidemia, unspecified; F25.0 Schizoaffective disorder, bipolar type; Y92.89 Other specified places as the place of occurrence of the external cause; Z88.8 Allergy status to other drugs, medicaments and biological substances; Z79.899 Other long term (current) drug therapy
CPT/HCPCS: 36415; 36600; 71045; 80048; 80053; 80076; 82803; 82947; 83605; 83735; 85025; 85027; 87040; 87641; 93005; J1815; J7120; 99285-25; J7030